=== PATIENT | female | born 1985 | race Caucasian/White ===

== ENCOUNTER 2021-02-23 09:59 | Inpatient (IN) | payer OTHER ==
[~2021-02-23] VITALS: Ht 165.1 cm; Wt 94.1 kg
[~2021-02-23 09:59] MED LIST: ACYC-113 PO; IBUP-1223 PO; OXYC1TAB14 PO; PREN1TAB60 PO; SENN-92 PO
[2021-02-23] MEDS ORDERED: MISOPROSTOL 200 MCG TABLET ONE (10:18)
[2021-02-23] MEDS ORDERED: OXYTOCIN 30U/ 0.9% NaCL 500ML 500 ML ONE (10:18)
[2021-02-23] MEDS ORDERED: NEWBORN KIT ONE (10:18)
[2021-02-23] MEDS ORDERED: METOCLOPRAMIDE 5 MG/ML, 2ML IV ONE (10:30)
[2021-02-23] MEDS ORDERED: SODIUM CITRATE/CITRIC ACID 30 ML UDC PO ONE (10:30)
[2021-02-23] MEDS ORDERED: LACTATED RINGERS 1,000 ML IVBOLUS ONE (10:30)
[2021-02-23] MEDS ORDERED: LACTATED RINGERS 1,000 ML IV SCH ×2 (10:30→11:30)
[2021-02-23] MEDS ORDERED: ONDANSETRON 2MG/ML, 2ML IVPush ONE (10:30)
[2021-02-23 10:45] LABS: BASOPHILS % (AUTO) 0 % (0-1); EOSINOPHILS % (AUTO) 1 % (1-7); LYMPHOCYTES % (AUTO) 20 % (22-44); MEAN CORPUSCULAR HEMOGLOBIN 28.3 pg (27.0-34.8); MEAN CORPUSCULAR HGB CONC 32.9 g/dL (32.4-35.8); MEAN PLATELET VOLUME 7.4 fL (7.4-10.4); MONOCYTES % (AUTO) 5 % (2-9); NEUTROPHILS % (AUTO) 74 % (42-75); PLATELET COUNT 275 x10^3/uL (130-400); RED BLOOD COUNT 3.71 x10^6/uL (3.82-5.3); RED CELL DISTRIBUTION WIDTH 13.5 % (9.6-15.2)
[2021-02-23 10:50] LABS: MD NO
[2021-02-23] MEDS ORDERED: OXYTOCIN 10 UNITS/ML, 1ML ONE (11:21)
[2021-02-23] MEDS ORDERED: HYDROmorphone 2 MG/ML, 1ML ONE (11:21)
[2021-02-23] MEDS ORDERED: CEFAZOLIN 1,000 MG ONE (11:21)
[2021-02-23] MEDS ORDERED: FENTANYL PF 100 MCG/2ML ONE (11:21)
[2021-02-23] MEDS ORDERED: ONDANSETRON 2MG/ML, 2ML ONE (11:21)
[2021-02-23] MEDS ORDERED: ONDANSETRON 2MG/ML, 2ML IV PRN (11:30)
[2021-02-23] MEDS ORDERED: IBUPROFEN 600 MG TABLET PO PRN (11:30)
[2021-02-23] MEDS ORDERED: morphine SULFATE 10 MG/ML, 1ML IVPush PRN (11:30)
[2021-02-23] MEDS ORDERED: METHYLERGONOVINE 0.2 MG/ML IM PRN (11:30)
[2021-02-23] MEDS ORDERED: OXYcodone/APAP 5/325MG TABLET PO PRN (11:30)
[2021-02-23] MEDS: OXYTOCIN 30U/ 0.9% NaCL 500ML 500 ML IV SCH ×2 (11:30→21:30)
[2021-02-23] MEDS ORDERED: SIMETHICONE 80 MG CHEW TAB PO PRN (11:30)
[2021-02-23] MEDS: LACTATED RINGERS 1,000 ML IV SCH ×2 (11:30→21:30)
[2021-02-23] MEDS ORDERED: MISOPROSTOL 200 MCG TABLET PR PRN (11:30)
[2021-02-23] MEDS ORDERED: KETOROLAC 30 MG/1 ML ONE ×2 (11:30→18:36)
[2021-02-23 14:50] VITALS: BP 109/78
[2021-02-23] MEDS ORDERED: METHYLERGONOVINE 0.2 MG/ML IM ONE (17:02)
[2021-02-23] MEDS: KETOROLAC 30 MG/1 ML IV SCH (18:40)
[2021-02-23 19:45] VITALS: BP 108/73
[2021-02-23 20:23] LABS: BASOPHILS % (AUTO) 0 % (0-1); EOSINOPHILS % (AUTO) 1 % (1-7); LYMPHOCYTES % (AUTO) 18 % (22-44); MEAN CORPUSCULAR HEMOGLOBIN 28.6 pg (27.0-34.8); MEAN PLATELET VOLUME 7.3 fL (7.4-10.4); MONOCYTES % (AUTO) 6 % (2-9); NEUTROPHILS % (AUTO) 75 % (42-75); PLATELET COUNT 231 x10^3/uL (130-400); RED BLOOD COUNT 3.34 x10^6/uL (3.82-5.3); RED CELL DISTRIBUTION WIDTH 13.5 % (9.6-15.2)
[2021-02-23 20:27] LABS: MD NO
[2021-02-23] MEDS: DOCUSATE 100 MG CAPSULE PO PRN (23:24)
[2021-02-23] MEDS: OXYcodone/APAP 5/325MG TABLET PO PRN (23:24)
[2021-02-23 23:30] VITALS: BP 112/76
[2021-02-24] MEDS: KETOROLAC 30 MG/1 ML IV SCH ×4 (00:35→18:23)
[2021-02-24] MEDS: OXYcodone/APAP 5/325MG TABLET PO PRN ×2 (04:13→09:16)
[2021-02-24 04:15] VITALS: BP 107/73
[2021-02-24 07:10] VITALS: BP 106/71
[2021-02-24] MEDS: LACTATED RINGERS 1,000 ML IV SCH ×2 (07:30→17:30)
[2021-02-24] MEDS: OXYTOCIN 30U/ 0.9% NaCL 500ML 500 ML IV SCH ×2 (07:30→17:30)
[2021-02-24] MEDS: DOCUSATE 100 MG CAPSULE PO PRN (09:16)
[2021-02-24] MEDS: PRENATAL VIT/IRON/FA 1 EACH TABLET PO SCH (09:16)
[2021-02-24 11:45] VITALS: BP 118/82
[2021-02-24 21:12] VITALS: BP 117/79
[2021-02-25] MEDS: DOCUSATE 100 MG CAPSULE PO PRN ×2 (00:34→07:17)
[2021-02-25] MEDS: KETOROLAC 30 MG/1 ML IV SCH ×2 (00:34→07:17)
[2021-02-25] MEDS: LACTATED RINGERS 1,000 ML IV SCH (02:04)
[2021-02-25] MEDS: OXYTOCIN 30U/ 0.9% NaCL 500ML 500 ML IV SCH (03:30)
[2021-02-25] MEDS: PRENATAL VIT/IRON/FA 1 EACH TABLET PO SCH (07:17)
[2021-02-25 07:18] VITALS: BP 122/82
[2021-02-25] MEDS ORDERED: FERR325T23 PO (10:30)
== END 2021-02-25 11:50 | disposition home or self-care (01) | DRG 785 ==
LOC: LDIP 09:59 → 2NW 14:35
PROVIDERS: ADMIT Obstetrics & Gynecology; ATTEND Obstetrics & Gynecology
PROC: 10D00Z1 Extraction of Products of Conception, Low, Open Approach (ICD-10-PCS; principal; 2021-02-23)
PROC: 0UB70ZZ Excision of Bilateral Fallopian Tubes, Open Approach (ICD-10-PCS; 2021-02-23)
DX: O34.211 Maternal care for low transverse scar from previous cesarean delivery (principal); Z20.822 Contact with and (suspected) exposure to COVID-19; O16.4 Unspecified maternal hypertension, complicating childbirth; O62.2 Other uterine inertia; O69.81X0 Labor and delivery complicated by cord around neck, without compression, not applicable or unspecified; Z37.0 Single live birth; Z3A.39 39 weeks gestation of pregnancy
CPT/HCPCS: 36415; 85025; 86592; 86850; 86900; 87635; 88302; G0378; J0690; J1170; J1885; J2405; J3010; J2210; J2590; J7120